=== PATIENT | female | born 1930 | race Caucasian/White ===

== ENCOUNTER → 2017-04-30 | Outpatient (CLI) | payer MEDICARE ==
[~2017-04-30] MED LIST: AMIT10TA PO; ASPI81TA50 PO; CALC600T PO; CEFD300C37 PO; DIAZ5TAB PO; DOCU100C33 PO; ESOM40CA PO; FLUT16SP2 INH; FOLI-17 PO; HYDR-3240 PO; LOSA25TA2 PO; LOSA25TA5 PO; MAGN400T26 PO; METH750T87 PO; METO25TA91 PO; MULT-6 PO; ONDA4TAB7 PO; OXYC-302 PO; PITA2TAB2 PO; THIA100T10 PO; TRAM50TA2 PO; UBID400C4 PO
== END | disposition home or self-care (01) ==
LOC: CVU 11:45
PROVIDERS: ATTEND Internal Medicine Cardiovascular Disease
DX: I65.23 Occlusion and stenosis of bilateral carotid arteries (principal); I10 Essential (primary) hypertension
CPT/HCPCS: 93880

== ENCOUNTER → 2017-05-20 | Outpatient (CLI) | payer MEDICARE | END | disposition home or self-care (01) | LOC: CARD 14:06 | PROVIDERS: ATTEND Internal Medicine Cardiovascular Disease | DX: I35.0 Nonrheumatic aortic (valve) stenosis (principal); R06.02 Shortness of breath; R42 Dizziness and giddiness | CPT/HCPCS: 94060; 94726; 94729 ==

== ENCOUNTER 2017-07-07 13:56 | Inpatient (IN) | payer MEDICARE ==
[~2017-07-07] VITALS: Ht 147.3 cm; Wt 49.0 kg
[2017-07-07] MEDS ORDERED: PLEASE ENTER HEIGHT AND WEIGHT MC SCH (14:30)
[2017-07-07] MEDS ORDERED: SODIUM CHLORIDE FLUSH 10ML SYR IVF ONE (14:30)
[2017-07-07] MEDS ORDERED: SODIUM CHLORIDE 0.9% 1,000ML IVBOLUS ONE (14:30)
[2017-07-07 14:39] LABS: HEMATOCRIT 48.8 % (34.6-47.8); HEMOGLOBIN 16.4 g/dL (11.7-16.4); WHITE BLOOD COUNT 8.3 x10^3/uL (3.4-10)
[2017-07-07 14:51] LABS: ASPARTATE AMINO TRANSFERASE 88 U/L (15-37); BLOOD UREA NITROGEN 27 mg/dL (7-18)
[2017-07-07 14:58] LABS: IS PT STATUS REG ER OR PRE ER? YES
[2017-07-07] MEDS ORDERED: CEFTRIAXONE PMX 1GM/50ML 50 ML IV ONE (15:30)
[2017-07-07] MEDS ORDERED: CEFTRIAXONE PMX 1GM/50ML 50 ML ONE (15:51)
[2017-07-07] MEDS ORDERED: ASPIRIN 81 MG TABLET CHEW PO ONE (16:00)
[2017-07-07] MEDS ORDERED: ASPIRIN 81 MG TABLET CHEW ONE (16:00)
[2017-07-07 18:30] VITALS: BP 145/93
[2017-07-07] MEDS ORDERED: ASPI-515 PO (18:30)
[2017-07-07] MEDS ORDERED: OXYcodone IR 5MG TABLET PO PRN (18:30)
[2017-07-07] MEDS ORDERED: DOCUSATE 100 MG CAPSULE PO PRN (18:30)
[2017-07-07] MEDS ORDERED: POLYETHYLENE GLYCOL 17 GM PACKET PO PRN (18:30)
[2017-07-07] MEDS ORDERED: ESCI5TAB PO (18:30)
[2017-07-07] MEDS ORDERED: morphine SULFATE 10 MG/ML, 1ML IVPush PRN (18:30)
[2017-07-07] MEDS ORDERED: GABA300C10 PO (18:30)
[2017-07-07] MEDS ORDERED: CLOP75TA PO (18:30)
[2017-07-07] MEDS ORDERED: ONDANSETRON 2MG/ML, 2ML IVPush PRN (18:30)
[2017-07-07] MEDS ORDERED: ENALAPRILAT 1.25 MG/ML, 2ML IVPush PRN (18:30)
[2017-07-07] MEDS ORDERED: BISACODYL 10 MG SUPP PR PRN (18:30)
[2017-07-07] MEDS ORDERED: hydrALAzine 20 MG/ML, 1ML IVPush PRN (18:30)
[2017-07-07] MEDS ORDERED: LOSA50TA6 PO (18:30)
[2017-07-07] MEDS ORDERED: DONE10TA14 PO (18:30)
[2017-07-07] MEDS: SODIUM CHLORIDE 0.9% 1,000 ML IV SCH (20:11)
[2017-07-07] MEDS: HEPARIN 5,000 UNITS/ML, 1ML SQ SCH (20:43)
[2017-07-07 20:56] VITALS: BP 107/59
[2017-07-08 01:27] VITALS: BP 105/65
[2017-07-08] MEDS: SODIUM CHLORIDE 0.9% 1,000 ML IV SCH (05:35)
[2017-07-08] MEDS: HEPARIN 5,000 UNITS/ML, 1ML SQ SCH ×3 (05:35→20:38)
[2017-07-08 05:47] LABS: HEMATOCRIT 38.5 % (34.6-47.8); HEMOGLOBIN 12.9 g/dL (11.7-16.4); WHITE BLOOD COUNT 6.5 x10^3/uL (3.4-10)
[2017-07-08 06:21] LABS: ASPARTATE AMINO TRANSFERASE 71 U/L (15-37); BLOOD UREA NITROGEN 33 mg/dL (7-18)
[2017-07-08 07:24] LABS: IS PT STATUS REG ER OR PRE ER? NO
[2017-07-08 07:37] VITALS: BP 97/62
[2017-07-08 13:37] LABS: IS PT STATUS REG ER OR PRE ER? NO
[2017-07-08 13:59] VITALS: BP 90/48
[2017-07-08] MEDS: LOSARTAN 50MG TABLET PO SCH (14:13)
[2017-07-08] MEDS: CITALOPRAM 10 MG TABLET PO SCH (14:13)
[2017-07-08] MEDS: ASPIRIN 81 MG TABLET EC PO SCH (14:13)
[2017-07-08] MEDS: DONEPEZIL 10 MG TABLET PO SCH (14:13)
[2017-07-08] MEDS: CLOPIDOGREL 75 MG TABLET PO SCH (14:14)
[2017-07-08] MEDS: GABAPENTIN 100 MG CAPSULE PO SCH (14:14)
[2017-07-08] MEDS: MULTIVITAMIN 1 TABLET PO SCH (14:14)
[2017-07-08] MEDS ORDERED: CEFTRIAXONE PMX 1GM/50ML 50 ML IV SCH (18:00)
[2017-07-08 19:04] VITALS: BP 106/62
[2017-07-08] MEDS: ACETAMINOPHEN 325 MG TABLET PO PRN (20:38)
[2017-07-09 01:53] VITALS: BP 95/57
[2017-07-09] MEDS: HEPARIN 5,000 UNITS/ML, 1ML SQ SCH ×2 (05:27→14:24)
[2017-07-09 07:59] VITALS: BP 101/55
[2017-07-09] MEDS: LOSARTAN 50MG TABLET PO SCH (09:00)
[2017-07-09] MEDS: ASPIRIN 81 MG TABLET EC PO SCH (09:39)
[2017-07-09] MEDS: DONEPEZIL 10 MG TABLET PO SCH (09:39)
[2017-07-09] MEDS: GABAPENTIN 100 MG CAPSULE PO SCH (09:39)
[2017-07-09] MEDS: CITALOPRAM 10 MG TABLET PO SCH (09:39)
[2017-07-09] MEDS: CLOPIDOGREL 75 MG TABLET PO SCH (09:40)
[2017-07-09] MEDS: MULTIVITAMIN 1 TABLET PO SCH (09:40)
[2017-07-09] MEDS ORDERED: ERGO500017 PO (11:07)
[2017-07-09] MEDS ORDERED: DOCU-131 PO (11:07)
[2017-07-09] MEDS ORDERED: CEFD300C37 PO (11:07)
[2017-07-09] MEDS ORDERED: ATOR10TA9 PO (11:10)
[2017-07-09] MEDS ORDERED: ERGOCALCIFEROL 50,000 UNIT CAPSULE PO SCH (11:30)
[2017-07-09] MEDS: ACETAMINOPHEN 325 MG TABLET PO PRN (11:40)
[2017-07-09 13:58] VITALS: BP 116/63
== END 2017-07-09 16:29 | DRG 689 ==
LOC: ED 14:02 → EDIP 16:57 → 4EST 18:11
PROVIDERS: ADMIT Family Medicine; ATTEND Family Medicine
PROC: 0T9B70Z Drainage of Bladder with Drainage Device, Via Natural or Artificial Opening (ICD-10-PCS; principal; 2017-07-07)
DX: N30.90 Cystitis, unspecified without hematuria (principal); G93.41 Metabolic encephalopathy; M62.82 Rhabdomyolysis; E86.0 Dehydration; W19.XXXA Unspecified fall, initial encounter; E78.5 Hyperlipidemia, unspecified; I35.0 Nonrheumatic aortic (valve) stenosis; K21.9 Gastro-esophageal reflux disease without esophagitis; E55.9 Vitamin D deficiency, unspecified; B96.20 Unspecified Escherichia coli [E. coli] as the cause of diseases classified elsewhere; F03.90 Unspecified dementia, unspecified severity, without behavioral disturbance, psychotic disturbance, mood disturbance, and anxiety; I10 Essential (primary) hypertension; I71.4 Abdominal aortic aneurysm, without rupture; M19.90 Unspecified osteoarthritis, unspecified site; S01.81XA Laceration without foreign body of other part of head, initial encounter; Z79.02 Long term (current) use of antithrombotics/antiplatelets; Z79.82 Long term (current) use of aspirin; Z85.3 Personal history of malignant neoplasm of breast; Z87.891 Personal history of nicotine dependence; Z92.3 Personal history of irradiation; Z95.2 Presence of prosthetic heart valve; Y93.89 Activity, other specified; Y92.59 Other trade areas as the place of occurrence of the external cause
CPT/HCPCS: 36415; 70450; 71010; 72125; 80053; 80061; 81001; 82306; 82550; 82607; 83036; 83605; 83735; 83880; 84439; 84443; 84484; 85025; 85610; 85730; 87040; 87077; 87086; 87186; 93005; 99285; J0696; J1644; J7030